=== PATIENT | female | born 1990 | race American Indian/Alaskan Native ===

== ENCOUNTER 2016-11-25 23:43 | Emergency (ER) | payer SELFPAY ==
--- NOTE | 2016-11-26 03:42 | Emergency Department Report ---
HPI - General Chief Complaint: Dental/Oral Time Seen by Provider: 11/26/16 03:34 - HPI HPI: Patient care complaint of toothache 1 month he. Denies any fever or chills. Denies any sore throat or difficulty breathing or swallowing. She says she's been taking [id number] medication which is not helping. Pain is located to left lower back tooth. Feels achy and worse with eating. She said the pain comes and goes and she ate some potatoes today and that's when it started again. Pain is 10 out of 10. Denies any nasal congestion or drainage. Denies any cough, chest pain, congestion or difficulty breathing. Sensation says she does not have a dentist. ED Past Medical Hx - Past Medical History Previous Medical History?: No - Surgical History Past Surgical History?: No - Family History Family history: no significant - Social History Smoking Status: Never Smoker Substance Use Type: None - Medications Home Medications: Home Medications Medication Instructions Recorded Confirmed Last Taken Type Acetaminophen/Codeine [Tylenol 1 tab PO Q6H PRN #12 tab 11/26/16 Unknown Rx /Codeine # 3 tab] Ibuprofen [Motrin] 600 mg PO Q8H PRN #15 tablet 11/26/16 Unknown Rx Penicillin V Potassium 500 mg PO Q6H #40 tablet 11/26/16 Unknown Rx ED Review of Systems ROS: Stated complaint: TOOTH PAIN Other details as noted in HPI Comment: All other systems reviewed and negative Constitutional: no symptoms reported Eyes: denies: eye pain, eye discharge ENT: dental pain. denies: ear pain, throat pain, epistaxis, congestion Respiratory: no symptoms reported Cardiovascular: denies: chest pain, palpitations, dyspnea on exertion, edema, syncope Gastrointestinal: denies: abdominal pain, nausea, vomiting, diarrhea Musculoskeletal: denies: back pain, joint swelling, arthralgia, myalgia Skin: denies: rash Neurological: denies: headache, numbness, paresthesias, confusion, abnormal gait , vertigo Physical Exam - Physical Exam Vital Signs: Vital Signs 11/26/16 00:12 Temperature 98.3 F Pulse Rate 81 Respiratory 16 Rate Blood Pressure 123/85 O2 Sat by Pulse 99 Oximetry General: This is a 26-year-old female well-nourished well-developed in no acute distress. Physical Exam: Head: Normocephalic, atraumatic, no abrasion, no bruising and no contusion. Eyes: Biateral pupils equal and reactive to light, bilateral EOM intact.. Bilateral conjunctival and sclera without injection, normal accommodation. Ears: Bilateral EAC without any redness drainage or swelling, bilateral TM pearly rowe ,bilateral tragus is normal and nontender. No auricular abnormality. No Mastoid bones tenderness. Nose: Moist, normal mucosa. No maxillary or frontal sinus tenderness. Mouth: No pharyngeal exudate or erythema Uvula is midline and oral airways patent. Moist and tongue is normal. No peritonsillar abscess. Multiple dental caries with gingivitis. No dental tenderness, cellulitis or induration MSK: Strength 5/5 in all extremities. No joint deformity or crepitus. Normal inspection. Full range of motion to all extremities Extremities: No clubbing, cyanosis or edema. +2 pulses. No neurovascular compromise Skin: Clean, dry and intact. No rash or lesions. Psych: Normal mood and behavior. ED Course Vital Signs 11/26/16 00:12 Temperature 98.3 F Pulse Rate 81 Respiratory 16 Rate Blood Pressure 123/85 O2 Sat by Pulse 99 Oximetry - Reevaluation(s) Reevaluation #1: 11/26/16 04:58 Patient given Tylenol 3 2 tablets emergency room for toothache. ED Medical Decision Making - Medical Decision Making ED course: Patient here complaining of toothache that an ongoing for 1 month and that flared up today after eating potatoes. Physical findings for gingivitis, dental caries. I explained diagnosis and treatment plan to patient and she voiced understanding. I discussed with her that she will need to find a dentist to treat underlying problems. I explained to her that I will refer her to [facility] clinic that she needs to call this morning to schedule an appointment for evaluation and treatment. Patient given Tylenol 3 2 tablets in the emergency room which helped her pain. Patient is stable and discharged home with prescription for penicillin VK ,Tylenol No. 3 and Motrin. Discharged home with her family in stable condition Critical care attestation.: If time is entered above; I have spent that time in minutes in the direct care of this critically ill patient, excluding procedure time. ED Disposition Clinical Impression: Tooth ache, Dental caries, Gingivitis Disposition: TO HOME OR SELFCARE Is pt being admited?: No Does the pt Need Aspirin: No Condition: Stable Instructions: Gingivitis (ED), Dental Caries (ED), Toothache (ED) Additional Instructions: Please call [facility] later this morning to schedule appointment for follow-up visit. Do not drive or operate heavy machinery while taking Tylenol No. 3 as this medication causes drowsiness Take penicillin as prescribed. Please floss twice daily Please gargle with Listerine mouthwash at least 3 times a day Prescriptions: Acetaminophen/Codeine [Tylenol /Codeine # 3 tab] 1 tab PO Q6H PRN #12 tab PRN Reason: Pain, Mild (1-3) Ibuprofen [Motrin] 600 mg PO Q8H PRN #15 tablet PRN Reason: Pain Penicillin V Potassium 500 mg PO Q6H #40 tablet Referrals: [facility] [Outside] - 11/27/16 Forms: Work/School Release Form(ED)
[2016-11-26] MEDS ORDERED: TYLENOL #3 PO ONE (04:10)
[2016-11-26 05:25] VITALS: BP 118/76
== END 2016-11-26 05:15 | disposition home or self-care (01) ==
LOC: ED 23:43
DX: K02.9 Dental caries, unspecified (principal); K05.10 Chronic gingivitis, plaque induced
CPT/HCPCS: 99282

== ENCOUNTER 2020-05-30 06:18 | Emergency (ER) | payer SELFPAY ==
--- NOTE | 2020-05-31 17:07 | Electrocardiograph Report ---
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
== END 2020-05-30 06:40 | disposition left against medical advice (07) ==
LOC: ED 06:18
DX: R07.89 Other chest pain (principal); Z53.21 Procedure and treatment not carried out due to patient leaving prior to being seen by health care provider
CPT/HCPCS: 93005